=== PATIENT | male | born 1985 | race Hispanic/Latino ===

== ENCOUNTER 2018-07-26 16:26 | Emergency (ER) | payer OTHER ==
[2018-07-26] MEDS ORDERED: HYDROCODONE/ACETAMINOPHEN 10/325 MG TAB ONE (16:54)
[2018-07-26] MEDS ORDERED: KETOROLAC TROMETHAMINE 30MG/ML ONE (16:54)
[2018-07-26] MEDS ORDERED: SODIUM CHLORIDE 0.9% 1000ML 1,000 ML IV ONE (18:14)
[2018-07-26] MEDS ORDERED: MORPHINE SULFATE 2 MG/ML 1ML SYG ONE (18:14)
[2018-07-26] MEDS ORDERED: MORPHINE SULFATE 4 MG/1ML SYG ONE (18:14)
[2018-07-26 18:27] LABS: BASOPHILS % (AUTO) 1.1 % (0.0-5.0); EOSINOPHILS % (AUTO) 1.4 % (0.0-8.0); LYMPHOCYTES % (AUTO) 19.1 % (21.0-51.0); MEAN CORPUSCULAR HEMOGLOBIN 29.2 pg (27.0-33.0); MEAN CORPUSCULAR HGB CONC 33.7 g/dL (32.0-36.0); MEAN CORPUSCULAR VOLUME 86.5 fL (79-99); MONOCYTES % (AUTO) 6.7 % (3.0-13.0); NEUTROPHILS % (AUTO) 71.7 % (40.0-77.0); PLATELET COUNT (AUTO) 210 K/uL (130-400); RED BLOOD CELL COUNT(AUTO) 5.55 MIL/uL (4.50-6.20); RED CELL DISTRIBUTION WIDTH 13.9 % (11.0-15.5); WHITE BLOOD COUNT (AUTO) 9.2 K/uL (4.8-10.8)
[2018-07-26 18:41] LABS: BILIRUBIN,URINE Negative (NEGATIVE); COLOR,URINE Yellow (YELLOW); GLUCOSE, URINE (UA) Negative (NEGATIVE); KETONES,URINE Negative (NEGATIVE); LEUKOCYTE ESTERASE ,URINE Negative (NEGATIVE); NITRATE,URINE Negative (NEGATIVE); OCCULT BLOOD,URINE Negative (NEGATIVE); PROTEIN,URINE Negative (NEGATIVE)
[2018-07-26 18:44] LABS: ALBUMIN 3.9 g/dL (3.5-5.0); BILIRUBIN,TOTAL 0.3 mg/dL (0.2-1.0); CREATININE 0.9 mg/dL (0.5-1.5); TOTAL PROTEIN, SERUM 8.2 g/dL (6.0-8.3)
[2018-07-26 18:45] LABS: APPEARANCE,URINE CLEAR (CLEAR); POTASSIUM 4.7 mmol/L (3.5-5.1)
[2018-07-26 18:49] LABS: AMPHET/METH SCREEN,URINE NEGATIVE (NEGATIVE); BARBITURATE SCREEN, URINE NEGATIVE (NEGATIVE); BENZODIAZEPINES SCREEN,URINE NEGATIVE (NEGATIVE); CANNABINOID SCREEN,URINE NEGATIVE (NEGATIVE); COCAINE SCREEN,URINE POSITIVE (NEGATIVE); OPIATE SCREEN,URINE NEGATIVE (NEGATIVE); PHENCYCLIDINE SCREEN,URINE NEGATIVE (NEGATIVE)
[2018-07-26] MEDS ORDERED: PREDNISONE 20 MG TABLET ONE (19:27)
== END 2018-07-26 19:34 | disposition home or self-care (01) ==
LOC: EDH 16:26
DX: M54.41 Lumbago with sciatica, right side (principal); Z72.0 Tobacco use
CPT/HCPCS: 36415; 80053; 80305; 81003; 85025; 96372; 96374; 99283; J1885; J2270; J7030

== ENCOUNTER 2021-09-08 18:50 | Emergency (ER) | payer MEDICARE ==
[~2021-09-08] VITALS: Ht 170.2 cm; Wt 117.9 kg
[2021-09-08 18:56] VITALS: BP 128/85
[2021-09-08] MEDS ORDERED: ORPHENADRINE CITRATE 30 MG/ML ML IM ONE (20:00)
[2021-09-08] MEDS ORDERED: KETOROLAC 60 MG VIAL (30MG/ML) IM ONE (20:00)
[2021-09-08] MEDS ORDERED: LIDOP TP (21:23)
[2021-09-08] MEDS ORDERED: MELO7.5T12 PO (21:23)
[2021-09-08] MEDS ORDERED: ORPH-43 PO (21:23)
== END 2021-09-08 21:41 | disposition home or self-care (01) ==
LOC: EDH 18:50
DX: S39.012A Strain of muscle, fascia and tendon of lower back, initial encounter (principal); S09.90XA Unspecified injury of head, initial encounter; M62.838 Other muscle spasm; F41.9 Anxiety disorder, unspecified; F32.A Depression, unspecified; E11.9 Type 2 diabetes mellitus without complications; E78.00 Pure hypercholesterolemia, unspecified; I10 Essential (primary) hypertension; F17.200 Nicotine dependence, unspecified, uncomplicated; M62.830 Muscle spasm of back; Z98.890 Other specified postprocedural states; Z88.8 Allergy status to other drugs, medicaments and biological substances; Z79.899 Other long term (current) drug therapy; W01.0XXA Fall on same level from slipping, tripping and stumbling without subsequent striking against object, initial encounter; Y93.89 Activity, other specified; Y92.89 Other specified places as the place of occurrence of the external cause; Y99.8 Other external cause status
CPT/HCPCS: 70450; 72131; 96372 ×2; 99284; J1885; J2360

== ENCOUNTER 2021-09-10 11:36 | Emergency (ER) | payer MEDICARE ==
[~2021-09-10] VITALS: Ht 170.2 cm; Wt 117.9 kg
[~2021-09-10 11:36] MED LIST: LIDOP TP; MELO7.5T12 PO; ORPH-43 PO
[2021-09-10 11:37] VITALS: BP 118/72
[2021-09-10] MEDS ORDERED: KETOROLAC 60 MG VIAL (30MG/ML) IM SCH (12:30)
[2021-09-10] MEDS ORDERED: CYCLOBENZAPRINE HCL 10 MG TABLET PO SCH (12:30)
== END 2021-09-10 12:34 | disposition left against medical advice (07) ==
LOC: EDH 11:36
DX: M54.50 Low back pain, unspecified (principal); G89.29 Other chronic pain; E11.9 Type 2 diabetes mellitus without complications; E78.00 Pure hypercholesterolemia, unspecified; I10 Essential (primary) hypertension; F17.200 Nicotine dependence, unspecified, uncomplicated; E66.9 Obesity, unspecified; Z68.41 Body mass index [BMI] 40.0-44.9, adult; Z79.1 Long term (current) use of non-steroidal anti-inflammatories (NSAID)
CPT/HCPCS: 99281

== ENCOUNTER 2022-01-18 12:26 | Emergency (ER) | payer MEDICARE ==
[~2022-01-18] VITALS: Ht 170.2 cm; Wt 117.9 kg
[2022-01-18 12:27] VITALS: BP 136/75
[2022-01-18] MEDS ORDERED: 0.9%NACL 1000ML 1,000 ML IV ONE ×2 (12:30→13:00)
[2022-01-18 12:47] LABS: BASOPHILS % (AUTO) 0.5 % (0.0-5.0); EOSINOPHILS % (AUTO) 2.3 % (0.0-8.0); HEMATOCRIT 45.6 % (42-54); LYMPHOCYTES % (AUTO) 24.7 % (21.0-51.0); MEAN CORPUSCULAR HEMOGLOBIN 28.6 pg (27.0-33.0); MEAN CORPUSCULAR VOLUME 84.1 fL (79-99); NEUTROPHILS % (AUTO) 66.4 % (40.0-77.0); PLATELET COUNT (AUTO) 189 K/uL (130-400); RED BLOOD CELL COUNT(AUTO) 5.42 MIL/uL (4.50-6.20); RED CELL DISTRIBUTION WIDTH 14.1 % (11.0-15.5); WHITE BLOOD COUNT (AUTO) 7.4 K/uL (4.8-10.8)
[2022-01-18] MEDS ORDERED: MORPHINE 4 MG SYG IVP ONE (13:00)
[2022-01-18] MEDS ORDERED: ONDANSETRON 4MG INJ IVP ONE (13:00)
[2022-01-18 13:03] LABS: CREATININE 1.1 mg/dL (0.5-1.5); POTASSIUM 4.3 mmol/L (3.5-5.1); TOTAL PROTEIN, SERUM 7.6 g/dL (6.0-8.3)
[2022-01-18 13:04] LABS: ALBUMIN 4.3 g/dL (3.5-5.0)
[2022-01-18 13:18] LABS: AMPHET/METH SCREEN,URINE NEGATIVE (NEGATIVE); BENZODIAZEPINES SCREEN,URINE NEGATIVE (NEGATIVE); CANNABINOID SCREEN,URINE NEGATIVE (NEGATIVE); COCAINE SCREEN,URINE NEGATIVE (NEGATIVE); PHENCYCLIDINE SCREEN,URINE NEGATIVE (NEGATIVE)
[2022-01-18 13:23] LABS: APPEARANCE,URINE CLEAR (CLEAR); BILIRUBIN,URINE NEGATIVE (NEGATIVE); COLOR,URINE YELLOW (YELLOW); GLUCOSE, URINE (UA) >=1000 mg/dL (NEGATIVE); KETONES,URINE NEGATIVE (NEGATIVE); LEUKOCYTE ESTERASE ,URINE NEGATIVE (NEGATIVE); NITRATE,URINE NEGATIVE (NEGATIVE); OCCULT BLOOD,URINE NEGATIVE (NEGATIVE); PH,URINE 5.5 (5.0-8.0); PROTEIN,URINE NEGATIVE (NEGATIVE); UROBILINOGEN,URINE 0.2 mg/dL (0.2-1.0)
[2022-01-18] MEDS ORDERED: INSULIN HUMULIN R 100 UNIT/ML 3ML IV SCH (13:30)
[2022-01-18] MEDS ORDERED: MORPHINE 4 MG SYG IVP SCH (14:00)
[2022-01-18 14:18] LABS: BACTERIA,URINE Rare /HPF (None Seen); RBC,URINE 0-1 /HPF (0-1); WBC,URINE 0-1 /HPF (0-1)
[2022-01-18] MEDS ORDERED: CYCL10TA16 PO (14:31)
[2022-01-18] MEDS ORDERED: IBUP-2070 PO (14:31)
[2022-01-20 08:15] LABS: OPIATES SCREEN URINE Positive ng/mL (Cutoff=300)
== END 2022-01-18 15:08 | disposition home or self-care (01) ==
LOC: EDH 12:26
DX: S06.9X1A Unspecified intracranial injury with loss of consciousness of 30 minutes or less, initial encounter (principal); E11.65 Type 2 diabetes mellitus with hyperglycemia; M54.2 Cervicalgia; M54.50 Low back pain, unspecified; M54.6 Pain in thoracic spine; F41.9 Anxiety disorder, unspecified; F32.A Depression, unspecified; E78.00 Pure hypercholesterolemia, unspecified; I10 Essential (primary) hypertension; Z88.8 Allergy status to other drugs, medicaments and biological substances; Z79.899 Other long term (current) drug therapy; W01.198A Fall on same level from slipping, tripping and stumbling with subsequent striking against other object, initial encounter; Y93.51 Activity, roller skating (inline) and skateboarding; Y92.89 Other specified places as the place of occurrence of the external cause; Y99.8 Other external cause status
CPT/HCPCS: 99285; 70450; 96374; 96375; 96361; 84484; 80053; 80305; 85025; 81001; 36415; 72125; 72131; 72128; 96376; 93005; J1815; J7030; J2405; J2270 ×2

== ENCOUNTER 2022-01-21 10:55 | Emergency (ER) | payer MEDICARE ==
[~2022-01-21] VITALS: Ht 170.2 cm; Wt 117.9 kg
[~2022-01-21 10:55] MED LIST changes: +CYCL10TA16 PO; +IBUP-2070 PO
[2022-01-21] MEDS ORDERED: KETOROLAC 60 MG VIAL (30MG/ML) IM ONE (12:00)
[2022-01-21] MEDS ORDERED: MORPHINE 4 MG SYG IM ONE (12:00)
[2022-01-21] MEDS ORDERED: CYCLOBENZAPRINE HCL 10 MG TABLET ONE (13:44)
[2022-01-21 13:57] VITALS: BP 125/78
[2022-01-21] MEDS ORDERED: CYCLOBENZAPRINE HCL 10 MG TABLET PO ONE (14:00)
== END 2022-01-21 13:59 | disposition home or self-care (01) ==
LOC: EDH 10:55
DX: S39.012A Strain of muscle, fascia and tendon of lower back, initial encounter (principal); S29.012A Strain of muscle and tendon of back wall of thorax, initial encounter; E11.9 Type 2 diabetes mellitus without complications; E78.00 Pure hypercholesterolemia, unspecified; F17.210 Nicotine dependence, cigarettes, uncomplicated; E66.9 Obesity, unspecified; I10 Essential (primary) hypertension; Z79.1 Long term (current) use of non-steroidal anti-inflammatories (NSAID); Z68.41 Body mass index [BMI] 40.0-44.9, adult; W01.0XXA Fall on same level from slipping, tripping and stumbling without subsequent striking against object, initial encounter; Y93.89 Activity, other specified; Y92.89 Other specified places as the place of occurrence of the external cause; Y99.8 Other external cause status
CPT/HCPCS: 99284; 72100; 96372 ×2; J2270; J1885

== ENCOUNTER 2022-03-03 12:18 | Emergency (ER) | payer MEDICARE ==
[~2022-03-03] VITALS: Ht 170.2 cm; Wt 117.9 kg
[2022-03-03 13:07] LABS: BASOPHILS % (AUTO) 0.4 % (0.0-5.0); EOSINOPHILS % (AUTO) 2.1 % (0.0-8.0); HEMATOCRIT 47.5 % (42-54); LYMPHOCYTES % (AUTO) 18.9 % (21.0-51.0); MEAN CORPUSCULAR HEMOGLOBIN 27.8 pg (27.0-33.0); MEAN CORPUSCULAR HGB CONC 33.5 g/dL (32.0-36.0); MEAN CORPUSCULAR VOLUME 83.2 fL (79-99); MONOCYTES % (AUTO) 4.9 % (3.0-13.0); PLATELET COUNT (AUTO) 193 K/uL (130-400); RED BLOOD CELL COUNT(AUTO) 5.71 MIL/uL (4.50-6.20); RED CELL DISTRIBUTION WIDTH 12.8 % (11.0-15.5); WHITE BLOOD COUNT (AUTO) 9.6 K/uL (4.8-10.8)
[2022-03-03 13:21] LABS: CREATININE 0.8 mg/dL (0.5-1.5); POTASSIUM 4.1 mmol/L (3.5-5.1)
[2022-03-03 13:26] LABS: ALBUMIN 4.1 g/dL (3.5-5.0); TOTAL PROTEIN, SERUM 7.3 g/dL (6.0-8.3)
[2022-03-03] MEDS ORDERED: KETOROLAC 30MG VIAL (30MG/ML) ONE (13:57)
[2022-03-03] MEDS ORDERED: ORPHENADRINE CITRATE 30 MG/ML ML ONE (13:58)
[2022-03-03] MEDS ORDERED: KETOROLAC 30MG VIAL (30MG/ML) IVP ONE (14:00)
[2022-03-03] MEDS ORDERED: ORPHENADRINE CITRATE 30 MG/ML ML IVP ONE (14:00)
[2022-03-03 14:05] VITALS: BP 114/84
== END 2022-03-03 15:08 | disposition left against medical advice (07) ==
LOC: EDH 12:18
DX: M54.2 Cervicalgia (principal); M54.6 Pain in thoracic spine; M54.50 Low back pain, unspecified; E11.9 Type 2 diabetes mellitus without complications; E78.00 Pure hypercholesterolemia, unspecified; I10 Essential (primary) hypertension; Z98.890 Other specified postprocedural states; Z79.899 Other long term (current) drug therapy; W19.XXXA Unspecified fall, initial encounter; Y93.01 Activity, walking, marching and hiking; Y92.89 Other specified places as the place of occurrence of the external cause; Y99.8 Other external cause status
CPT/HCPCS: 99285; 72125; 96374; 96375; 84484; 80053; 85025; 36415; 72131; 72128; 93005; J1885; J2360